=== PATIENT | female | born 1995 | race African-American/Black ===

== ENCOUNTER 2018-07-24 19:56 | Emergency (ER) | payer MEDICAID ==
[~2018-07-24] VITALS: Ht 154.9 cm; Wt 59.0 kg
[~2018-07-24 19:56] MED LIST: LEVE500T22 PO; PREN-96 PO
[2018-07-24 21:24] VITALS: BP 126/81
== END 2018-07-24 21:37 | disposition home or self-care (01) ==
LOC: ER 20:00
DX: B35.0 Tinea barbae and tinea capitis (principal); L65.9 Nonscarring hair loss, unspecified; Z88.0 Allergy status to penicillin; Z79.899 Other long term (current) drug therapy

== ENCOUNTER 2022-08-08 05:56 | Emergency (ER) | payer MEDICAID ==
[~2022-08-08] VITALS: Ht 154.9 cm; Wt 68.3 kg
[~2022-08-08 05:56] MED LIST changes: -LEVE500T22 PO; +LEVE500T40 PO
[2022-08-08 07:16] VITALS: BP 126/85
[2022-08-08] MEDS ORDERED: CIPRSUS OT (07:36)
== END 2022-08-08 07:41 | disposition home or self-care (01) ==
LOC: ER 05:56
DX: H60.92 Unspecified otitis externa, left ear (principal); Z88.0 Allergy status to penicillin; Z88.1 Allergy status to other antibiotic agents

== ENCOUNTER 2022-12-24 17:25 | Emergency (ER) | payer MEDICAID ==
[~2022-12-24] VITALS: Ht 154.9 cm; Wt 66.3 kg
[~2022-12-24 17:25] MED LIST changes: +CIPRSUS OT
[2022-12-24 18:48] LABS: Urine Bacteria FEW /hpf (None Seen); Urine Blood Negative /uL (Negative); Urine Clarity HAZY (Clear); Urine Color Yellow (Yellow); Urine Mucus FEW (None Seen); Urine Protein, UAD TRACE (Negative); Urine Specific Gravity 1.023 (1.001-1.035); Urine Urobilinogen Normal (Negative); Urine WBC 9 /hpf (0 - 5); Urine pH 5.5 (5.0-8.0)
[2022-12-24 19:01] VITALS: BP 127/76; PULSE 88; RESP 16; TEMP 99.2; O2SAT 100
[2022-12-24 20:20] VITALS: PULSE 88; RESP 16; O2SAT 100
[2022-12-24 21:13] LABS: COVID19 ANTIGEN SOFIA FIA NEGATIVE (NEGATIVE); Rapid Influenza A Negative (Negative); Rapid Influenza B Negative (Negative)
[2022-12-24] MEDS ORDERED: CEPH500T PO (21:41)
== END 2022-12-24 22:16 | disposition home or self-care (01) ==
LOC: ER 17:25
DX: R50.9 Fever, unspecified (principal); R19.7 Diarrhea, unspecified; N39.0 Urinary tract infection, site not specified; Z20.822 Contact with and (suspected) exposure to COVID-19
CPT/HCPCS: 36415; 81001; 87426; 87804

== ENCOUNTER 2024-06-26 21:12 | Emergency (ER) | payer SELFPAY ==
[~2024-06-26] VITALS: Ht 154.9 cm; Wt 60.0 kg
[~2024-06-26 21:12] MED LIST changes: +CEPH500T PO
[2024-06-26 22:17] LABS: Rapid Influenza A Negative (Negative); Rapid Influenza B Negative (Negative)
[2024-06-26 22:18] LABS: COVID19 ANTIGEN SOFIA FIA NEGATIVE (NEGATIVE)
[2024-06-26] MEDS ORDERED: AMOX875T4 PO (23:54)
[2024-06-26] MEDS ORDERED: ACET500T58 PO (23:54)
--- NOTE | 2024-06-26 23:54 | ED.PDOC ---
History of Present Illness HPI Comments 29-year-old female presents to ER with complaints of flu-like symptoms x1 day. Patient presents via EMS, reporting that she has been experiencing dry cough, sore throat, body aches and intermittent fever x1 day. Patient was given 1 g of Tylenol along with 500 mL of NS by EMS with some relief. Patient presents to ER febrile on arrival at 103.0 F, ambulatory, with steady gait, alert and oriented x4, in no distress. Denies shortness of breath, chest pain, hemoptysis, headache, dizziness, known exposure to sick contacts, neck pain, abdominal pain, changes in urination/BM or any further symptoms/complaints Chief Complaint: Flu like Time Seen by MD: 21:24 Primary Care Provider: NOLAN Reviewed Notes: Nurses Notes, Medications, Allergies Information Source: Patient Mode of Arrival: EMS Past Medical History Medical History: - October 2023 Family History Family History: Unknown Social History Smoking: Non-Smoker Alcohol: Denies ETOH Use Drugs: Denies Drug Use Lives In: Home Constitutional: See HPI EENTM: See HPI Respiratory: See HPI Cardiovascular: No Symptoms Reported Gastrointestinal: No Symptoms Reported Genitourinary: No Symptoms Reported Neurological: No Symptoms Reported Musculoskeletal: No Symptoms Reported Integumentary: No Symptoms Reported Allergic/Immunocompromised: others (DENIES) Hematologic/Lymphatic: No Symptoms Reported Endocrine: No Symptoms Reported Psychiatric: No symptoms Reported Physical Exam General Appearance: No Apparent Distress HEENT: Pharyngeal Erythema (MILD TONSILLAR SWELLING/ERYTHEMA NOTED BILATERALLY WITHOUT EXUDATES. UVULA-NORMAL), TMs Normal Neck: Full Range of Motion, Non-Tender, Normal Respiratory: Chest Non-Tender, Lungs Clear, No Accessory Muscle Use, No Respiratory Distress, Normal Breath Sounds Cardiovascular: No Murmur, No Gallop, Tachycardia Breast Exam: Deferred Gastrointestinal: NOT DONE Genitalia: Deferred Pelvic: Deferred Rectal: Deferred Extremities: Normal capillary refill, Normal range of motion Neurologic: Alert, hr director II-XII nml as Tested, No Motor Deficits, Normal Affect, Normal Mood, No Sensory Deficits Cerebellar Function: Normal Reflexes: Normal Skin: Dry, Normal Color, Warm Lymphatic: No Adenopathy Was a procedure done? Was a procedure done?: No Sedation Sedation?: No Fever Differential Dx Differential Diagnosis: Pneumonia, Sepsis, Other (COVID-19, INFLUENZA) X-Ray, Labs, Meds, VS Vital Signs Date Time Temp Pulse Resp B/P (MAP) Pulse Ox O2 Delivery O2 Flow Rate FiO2 06/26/24 23:57 98.3 116 16 124/75 (91) 99 98.3 06/26/24 23:53 18 98 Room Air 0 06/26/24 21:19 103.0 114 18 109/63 (78) 97 103.0 Lab Test 06/26/24 21:35 Range/Units Influenza Type A Antigen Negative Negative Influenza Type B Antigen Negative Negative SARS-CoV-2 Antigen (Rapid) Negative NEGATIVE SWAB RESULTS REVIEWED-NEGATIVE ROCEPHIN 1 G IV ORDERED PATIENT HAD IMPROVEMENT IN SYMPTOMS, TOLERATING P.O. INTAKE WELL, AFEBRILE AND NON-TOXIC APPEARING/ IN NO DISTRESS PRIOR TO DISCHARGE ADVISED TO DRINK PLENTY OF FLUIDS ADVISED TO FOLLOW UP WITH PCP IN 1-2 DAYS PATIENT VERBALIZED UNDERSTANDING AND AGREEABLE WITH CURRENT PLAN OF CARE ADVISED TO RETURN TO ER IMMEDIATELY IF SYMPTOMS WORSEN Time of 1ST Reevaluation: 23:24 Reevaluation 1ST: N/A Patient Education/Counseling: Diagnosis, Treatment, Prognosis, Need For Follow Up Family Education/Counseling: No Family Present Departure 1 Departure Time of Disposition: 23:52 Impression: Primary Impression: Upper respiratory infection Qualified Codes: J06.9 - Acute upper respiratory infection, unspecified Disposition: 01 HOME / SELF CARE / HOMELESS Condition: Stable e-Prescriptions Azithromycin (Azithromycin) 250 Mg Tab 250 MG PO DAILY MDD 500 for 5 Days, #6 TAB 0 Refills 2 TABLETS ORALLY ON DAY ONE, THEN 1 TABLET ORALLY DAILY FOR 4 DAYS Prov: ANYI HEALY 06/26/24 Acetaminophen (Acetaminophen) 500 Mg Tab 500 MG PO Q4HPRN, #30 TAB 0 Refills Prov: ANYI HEALY 06/26/24 Discharged With: Friend Critical Care Note Critical Care Time?: No Stability Stability form required: ANYI Franklin Jun 26, 2024 23:54
[2024-06-26 23:57] VITALS: BP 124/75; PULSE 116; RESP 16; TEMP 98.3; O2SAT 99
[2024-06-26] MEDS ORDERED: AZIT-43 PO (23:57)
[2024-06-27] MEDS ORDERED: cefTRIAXone SOD 1,000 MG VL IM ONE
[2024-06-27] MEDS: cefTRIAXone 1GM/50ML D5W 50 ML IV ONE (00:10)
== END 2024-06-27 00:23 | disposition home or self-care (01) ==
LOC: ER 21:12 → EDBD 21:12 → ER 06-27 00:23
DX: J06.9 Acute upper respiratory infection, unspecified (principal); Z20.822 Contact with and (suspected) exposure to COVID-19
CPT/HCPCS: 36415; 87426; 87804; 96374; 99283; J0696

== ENCOUNTER 2025-02-07 00:41 | Emergency (ER) | payer MEDICAID, OTHER ==
[~2025-02-07] VITALS: Ht 154.9 cm; Wt 76.0 kg
[~2025-02-07 00:41] MED LIST changes: +ACET500T58 PO; +AZIT-43 PO
[2025-02-07 00:43] VITALS: BP 119/81; PULSE 78; RESP 16; TEMP 98.1; O2SAT 98
== END 2025-02-07 00:54 | disposition left against medical advice (07) ==
LOC: ER 00:41
DX: R51.9 Headache, unspecified (principal); Z79.899 Other long term (current) drug therapy